=== PATIENT | female | born 1930 | race Caucasian/White ===

== ENCOUNTER 2018-01-16 16:21 | Emergency (ER) | payer OTHER, MEDICARE ==
[~2018-01-16] VITALS: Ht 162.6 cm; Wt 58.0 kg
[~2018-01-16 16:21] MED LIST: ATIVAN0.5 MG PO; Ascorbic Acid,Ester- PO; CALCIUM 500 +1 EACH PO; Coumadin Protocol PO; FISH OIL 1,0001 EAC7 PO; Folvite PO; LISINOPRIL10 MG PO; Maalox, Mylanta PO; Milk Of Magnesia,MOM PO; OCUVITE TABLET1 EACH PO; Senokot S,Pericolace PO; TOPROL XL50 MG PO; Theragran PO; Tylenol Regular Stre PO; Ultram PO
[2018-01-16] MEDS ORDERED: PRINIVIL10 MG PO (17:24)
[2018-01-16] MEDS ORDERED: PRESERVISION T1 EACH PO (17:24)
[2018-01-16] MEDS ORDERED: IRON325 M1 PO (17:24)
[2018-01-16 17:53] LABS: BASOPHIL (%) 0.4 % (0-1); EOSINOPHIL (%) 1.1 % (0-5); EOSINOPHIL COUNT 0.1 K/uL (0-0.3); HEMATOCRIT 30.2 % (36.0-46.0); HEMOGLOBIN 10.2 G/DL (11.9-15.5); IMMATURE GRANULOCYTE (%) 0.2 % (0.0-0.7); LYMPHOCYTE (%) 15.8 % (15-42); LYMPHOCYTE COUNT 0.9 K/uL (1.0-2.8); MCH 31.1 PG (29.0-34.0); MCHC 33.8 G/DL (30.0-36.0); MCV 92.1 FL (83-99); MONOCYTE (%) 9.8 % (3-12); MONOCYTE COUNT 0.5 K/uL (0-0.8); NEUTROPHIL (%) 72.7 % (45-76); PLATELET COUNT 105 K/uL (156-360); RBC DIS.WIDTH-CV 14.6 % (11.8-14.6); RBC DIS.WIDTH-SD 49.8 % (39-53); RED BLOOD COUNT 3.28 M/uL (3.80-5.20); WHITE BLOOD COUNT 5.4 K/uL (4.1-10.2)
[2018-01-16 18:03] LABS: CHLORIDE 101 mEq/L (99-109); POTASSIUM 3.6 mEq/L (3.7-5.4); SODIUM 133 mEq/L (136-147)
[2018-01-16 18:05] LABS: GLUCOSE 111 mg/dL (70-99); TOTAL PROTEIN 7.5 g/dL (6.4-8.3)
[2018-01-16 18:07] LABS: TOTAL BILIRUBIN 0.4 mg/dL (0.0-1.0)
[2018-01-16 18:09] LABS: ALKALINE PHOSPHATASE 248 IU/L (3-129); CREATININE 0.8 mg/dL (0.6-1.3); GFR ESTIMATE (CALCULATED) > 59 mL/min/
[2018-01-16 18:10] LABS: AST (GOT) 40 IU/L (2-34); UREA NITROGEN (BUN) 20 mg/dL (9-23)
[2018-01-16 18:12] LABS: ALT (GPT) 36 IU/L (3-49)
[2018-01-16 18:19] LABS: TROP-I INTERPRETATION NEGATIVE; TROPONIN-I 0.01 ng/mL (0.0-0.30)
[2018-01-16] MEDS ORDERED: ULTRAM50 MG PO (21:41)
[2018-01-16 22:03] VITALS: BP 168/80
== END 2018-01-16 22:12 | disposition home or self-care (01) ==
LOC: EME 16:21
PROVIDERS: Emergency Medicine
DX: S42.292A Other displaced fracture of upper end of left humerus, initial encounter for closed fracture (principal); R22.0 Localized swelling, mass and lump, head; W01.0XXA Fall on same level from slipping, tripping and stumbling without subsequent striking against object, initial encounter; M85.812 Other specified disorders of bone density and structure, left shoulder; M25.78 Osteophyte, vertebrae; I10 Essential (primary) hypertension; Z90.710 Acquired absence of both cervix and uterus
CPT/HCPCS: 70450; 72125; 73030; 80053; 84484; 85025; 93005; 99281; 99285

== ENCOUNTER 2018-01-28 14:05 | Emergency (ER) | payer OTHER, MEDICARE ==
[~2018-01-28] VITALS: Ht 160 cm; Wt 61.3 kg
[~2018-01-28 14:05] MED LIST changes: +IRON325 M1 PO; +PRESERVISION T1 EACH PO; +PRINIVIL10 MG PO; +ULTRAM50 MG PO
[2018-01-28 14:54] LABS: HEMATOCRIT 28.8 % (36.0-46.0); HEMOGLOBIN 9.6 G/DL (11.9-15.5); MCH 31.2 PG (29.0-34.0); MCHC 33.3 G/DL (30.0-36.0); MCV 93.5 FL (83-99); PLATELET COUNT 143 K/uL (156-360); RBC DIS.WIDTH-CV 14.9 % (11.8-14.6); RBC DIS.WIDTH-SD 51.1 % (39-53); RED BLOOD COUNT 3.08 M/uL (3.80-5.20); WHITE BLOOD COUNT 5.5 K/uL (4.1-10.2)
[2018-01-28 14:54] LABS: CHLORIDE 101 mEq/L (99-109); POTASSIUM 3.7 mEq/L (3.7-5.4); SODIUM 132 mEq/L (136-147)
[2018-01-28 14:56] LABS: GLUCOSE 115 mg/dL (70-99)
[2018-01-28 15:00] LABS: CREATININE 0.6 mg/dL (0.6-1.3); GFR ESTIMATE (CALCULATED) > 59 mL/min/
[2018-01-28 15:01] LABS: UREA NITROGEN (BUN) 15 mg/dL (9-23)
[2018-01-28 15:07] LABS: TROP-I INTERPRETATION NEGATIVE; TROPONIN-I 0.03 ng/mL (0.0-0.30)
[2018-01-28] MEDS ORDERED: VITAMIN D3 PO (16:32)
[2018-01-28 18:37] VITALS: BP 167/84
== END 2018-01-28 18:38 | disposition home or self-care (01) ==
LOC: EME 14:05
PROVIDERS: Emergency Medicine
DX: I48.91 Unspecified atrial fibrillation (principal); R60.0 Localized edema; E78.5 Hyperlipidemia, unspecified; F41.9 Anxiety disorder, unspecified; I10 Essential (primary) hypertension; Z96.642 Presence of left artificial hip joint
CPT/HCPCS: 71046; 80048; 84484; 85027; 93005; 93970; 99281; 99285; J7030